=== PATIENT | male | born 1970 | race Hispanic/Latino ===

== ENCOUNTER 2025-05-29 07:10 | Observation (INO) | payer OTHER ==
[2025-05-25 12:54] LABS: IMMATURE GRANULOCYTE ABSOLUTE 0.04 K/uL (0-1); NUCLEATED RED BLOOD CELLS 0.0 % (0.0-0.19); PLATELET COUNT (AUTO) 226 K/uL (130-400); RED BLOOD CELL COUNT(AUTO) 5.53 MIL/uL (4.50-6.20); RED CELL DISTRIBUTION WIDTH 12.8 % (11.0-15.5); WHITE BLOOD COUNT (AUTO) 8.4 K/uL (4.8-10.8)
[2025-05-25 12:57] VITALS: BP 129/70; PULSE 94; RESP 17; TEMP 98.2
[2025-05-25 13:04] LABS: CREATININE 1.1 mg/dL (0.5-1.3); GLOMERULAR FILTR. RATE CALC 80.0 mL/min (>90); GLUCOSE,RANDOM 154.0 mg/dL (70-105); SODIUM SERUM 139.0 mmol/L (136-145); UREA NITROGEN, BLOOD 12.0 mg/dL (7-18)
[2025-05-25 13:06] LABS: INR 1.06 (0.85-1.15)
[2025-05-25 13:39] LABS: APPEARANCE,URINE CLEAR (CLEAR); GLUCOSE, URINE (UA) NEGATIVE (NEGATIVE); LEUKOCYTE ESTERASE ,URINE 25 Leu/uL (NEGATIVE); NITRATE,URINE NEGATIVE (NEGATIVE); OCCULT BLOOD,URINE SMALL (NEGATIVE)
[2025-05-25 13:43] LABS: ADD UA MICROSCOPIC YES
[2025-05-29] VITALS (29 sets, daily range): BP systolic 108–158; BP diastolic 67–98; PULSE 75–103; RESP 14–20; TEMP 97.3–98.1; O2SAT 97–98
[~2025-05-29] VITALS: Ht 167.6 cm; Wt 84.6 kg
[~2025-05-29 07:10] MED LIST: ASPI-1443 PO; ATOR40TA69 PO; ICOS1CAP PO; VALS1TAB73 PO
[2025-05-29] MEDS: LACTATED RINGERS 1000ML 1,000 ML IV ONE (08:01)
[2025-05-29] MEDS ORDERED: TRANEXAMIC ACID 1000MG/10ML ONE (08:23)
[2025-05-29] MEDS ORDERED: BACITRACIN 28.4 GM OINT TP ONE (08:23)
[2025-05-29] MEDS ORDERED: VANCOMYCIN 500MG+NS 100ML 100 ML IV ONE (08:23)
[2025-05-29] MEDS ORDERED: THROMBIN-JMI 5000 UNIT/VIAL TP ONE (08:24)
[2025-05-29] MEDS ORDERED: SUCCINYLCHOLINE CHLORIDE 20 MG/ML 10 ML VIAL ONE (08:39)
[2025-05-29] MEDS ORDERED: MIDAZOLAM HCL 1 MG/ML 2ML VIAL ONE (08:39)
--- NOTE | 2025-05-29 13:10 | NUR ---
PT TAKEN TO ROOM 426 NAD NOT VOICING ANY COMPLAINTS
--- NOTE | 2025-05-29 13:15 | NUR ---
PATIENT ARRIVED ON UNIT VIA STRETCHER. NO SIGNS OF DISTRESS NOTED. PATIENT VERBALIZES NO PAIN AT THE MOMENT. WILL CONTINUE TO MONITOR AND FOLLOW THROUGH WITH ORDERS.
--- NOTE | 2025-05-29 14:21 | NUR ---
DC PLAN VISITED WITH PATIENT. PATIENT LIVES WITH SPOUSE. INDEPENDENT ABLE TO PERFORM ADL'S. PATIENT HAS NO SERVICES OR DME'S. FEELS SAFE TO RETURN HOME. Addendum: 05/29/25 at 1422 by GUEVARA KING RN CM Amended: Links added.
[2025-05-29] MEDS: 0.9%NACL 1000ML 1,000 ML IV SCH (14:55)
[2025-05-29] MEDS: NICOTINE 14 MG/ 24 HR PATCH TD SCH (16:34)
[2025-05-29] MEDS: ASPIRIN 81 MG EC TAB PO SCH (19:49)
[2025-05-29] MEDS: ICOSAPENT ETHYL 1 GM PO SCH (19:51)
[2025-05-30 03:57] VITALS: BP 106/64; PULSE 74; RESP 18; TEMP 98.1
[2025-05-30 08:00] VITALS: BP 109/72; PULSE 71; RESP 15; TEMP 98; O2SAT 98
--- NOTE | 2025-05-30 09:36 | OP ---
DATE OF PROCEDURE: 05/29/2025 INDICATIONS: The patient is a 54-year-old male with history of chronic pain syndrome. PREOPERATIVE DIAGNOSIS: Post laminectomy syndrome. POSTOPERATIVE DIAGNOSES: Post laminectomy syndrome and malfunction in device. SURGEON: Riccardo Martin M.D. ANESTHESIA: General. The patient tolerated procedure well. PROCEDURE: Removal of DCS and removal of battery. DESCRIPTION OF PROCEDURE: The patient was brought to the operating room, adequate general endotracheal anesthesia was achieved. IV antibiotics were given. The patient was positioned prone with adequate padding to all pressure areas. The back was extensively prepped and draped in the usual sterile fashion. The prior incisions were delineated, infiltrated with lidocaine with epinephrine. They were done. The battery site was done first with a blade Bovie. The battery was explanted. This was disconnected. A small was done in the leads and thereafter, we followed them through the midline where the incision was opened with blade, bipolar coagulation, Bovie and we were able to remove them once they were released from the anchor suture. Copious irrigation was done with bacteriostatic solution, Marcaine into the subcutaneous tissue, and then the wounds were closed by anatomical layer, Vicryl 1, Vicryl 2, and a subcuticular stitch and Dermabond for the skin. The patient tolerated the procedure well. There were no complications. Sponge count, needle count, and cottonoid count reported completed at the end of the procedure. TID: [id number] RECEIPT: [id number]
--- NOTE | 2025-05-30 12:28 | NUR ---
DISCHARGE PATIENT RECEIVED DISCHARGE ORDERS TO GO HOME BY DR. SPRINGER. [place] CHARGE NURSE DISCONTINUED IV AND PROCEEDED WITH DISCHARGE TO HOME. WHEELED DOWN BY [place] CHARGE NURSE WELL.
== END 2025-05-30 12:30 | disposition home or self-care (01) ==
LOC: DAH 07:10 → DAHIP 07:11 → DAH 07:11 → 4DH 13:15
PROVIDERS: ADMIT Neurological Surgery; ATTEND Neurological Surgery
DX: T85.113A Breakdown (mechanical) of implanted electronic neurostimulator, generator, initial encounter (principal); T85.192A Other mechanical complication of implanted electronic neurostimulator of spinal cord electrode (lead), initial encounter; G89.4 Chronic pain syndrome; M54.59 Other low back pain; M96.1 Postlaminectomy syndrome, not elsewhere classified; R00.2 Palpitations; I10 Essential (primary) hypertension; R79.1 Abnormal coagulation profile; Y92.89 Other specified places as the place of occurrence of the external cause; Z79.899 Other long term (current) drug therapy; Z98.890 Other specified postprocedural states
CPT/HCPCS: 80048; 85025; 85610; 85730; 86850 ×2; 86900 ×2; 86901 ×2; 81001; 36415 ×2; 63662; 63688; 96374; G0378 ×22; A4663; A4649 ×5; A4606; J7120; J3373 ×2; J3010 ×2; J1171 ×2; J3490 ×5; J1100; J0330; J0665 ×3; J2250; J2704; J2405; J3260 ×2; J0690 ×2; A6010; A4930; A4215; A4223 ×2; A4213; A4222; A4221; A4216